=== PATIENT | male | born 1990 | race Caucasian/White ===

== ENCOUNTER 2023-09-20 18:52 | Emergency (ER) | payer OTHER ==
[2023-09-20 19:23] VITALS: BP 133/83; PULSE 100; RESP 18; TEMP 98.7; BMI 28.3
[2023-09-20] MEDS ORDERED: ACETAMINOPHEN 500 MG TABLET (FP) PO ONE (22:15)
[2023-09-20] MEDS ORDERED: ACETAMINOPHEN 500 MG TABLET (FP) ONE (22:26)
== END 2023-09-20 22:33 | disposition home or self-care (01) ==
LOC: FER 18:52
DX: M79.661 Pain in right lower leg (principal); S80.11XA Contusion of right lower leg, initial encounter; W50.1XXA Accidental kick by another person, initial encounter; Y93.75 Activity, martial arts
CPT/HCPCS: 93971-TC